=== PATIENT | female | born 1990 | race Two or more races ===

== ENCOUNTER 2019-10-27 17:01 | Emergency (ER) | payer SELFPAY ==
--- NOTE | 2019-10-27 17:30 | ER Document Report ---
ED Medical Screen (RME) - General Chief Complaint: Abdominal Pain Stated Complaint: ABDOMINAL PAIN Time Seen by Provider: 10/27/19 17:21 Mode of Arrival: Ambulatory Information source: Patient Notes: 28-year-old female presents to ED for complaint of right pelvic pain x3 days. She states her last menstrual cycle was October 07. She states that for the last 2 weeks she has had vaginal spotting. She states 3 days ago she started with some mild pelvic pain which is gradually gotten much worse until today her pain is a 4 out of 5. She states that she constantly feels like she has to have a big bowel movement cramping. She is alert oriented respirations regular nonlabored speaking in full sentences. She states she had a stool yesterday. I have greeted and performed a rapid initial assessment of this patient. A comprehensive ED assessment and evaluation of the patient, analysis of test results and completion of medical decision making process will be conducted by an additional ED providers. Physical Exam - Vital signs Vitals: Temp Pulse Resp BP Pulse Ox 98.3 F 76 16 118/78 100 10/27/19 17:07 10/27/19 17:07 10/27/19 17:07 10/27/19 17:07 10/27/19 17:07 Course - Vital Signs Vital signs: Temp Pulse Resp BP Pulse Ox 98.3 F 76 16 118/78 100 10/27/19 17:07 10/27/19 17:07 10/27/19 17:07 10/27/19 17:07 10/27/19 17:07
[2019-10-27 17:54] LABS: ABSOLUTE EOSINOPHILS # (AUTO) 0.1 10^3/uL (0.0-0.6); ABSOLUTE LYMPHOCYTES (AUTO) 2.1 10^3/uL (0.5-4.7); ABSOLUTE MONOCYTES (AUTO) 0.6 10^3/uL (0.1-1.4); ABSOLUTE NEUT (AUTO) 6.9 10^3/uL (1.7-8.2); BASOPHILS % (AUTO) 0.5 % (0-2); EOSINOPHILS % (AUTO) 0.8 % (0-6); HEMATOCRIT 37.7 % (36.0-47.0); HEMOGLOBIN 13.1 g/dL (12.0-15.5); MEAN CORPUSCULAR HEMOGLOBIN 29.5 pg (27.0-33.4); MEAN CORPUSCULAR HGB CONC 34.7 g/dL (32.0-36.0); MEAN CORPUSCULAR VOLUME 85 fl (80-97); MONOCYTES % (AUTO) 5.7 % (3-13); PLATELET COUNT 314 10^3/uL (150-450); RED BLOOD COUNT 4.42 10^6/uL (3.72-5.28); RED CELL DISTRIBUTION WIDTH 14.6 % (11.5-14.0); TOTAL CELLS COUNTED % (AUTO) 100 %; WHITE BLOOD COUNT 9.8 10^3/uL (4.0-10.5)
[2019-10-27 17:59] LABS: APPEARANCE,URINE CLEAR; BILIRUBIN,URINE NEGATIVE (NEGATIVE); COLOR,URINE YELLOW; GLUCOSE, URINE NEGATIVE (NEGATIVE); KETONES,URINE NEGATIVE (NEGATIVE); PROTEIN,URINE NEGATIVE (NEGATIVE); URINE SPECIFIC GRAVITY 1.012; UROBILINOGEN,URINE NEGATIVE mg/dL (<2.0)
[2019-10-27 18:09] LABS: ALBUMIN 4.7 g/dL (3.5-5.0); ALKALINE PHOSPHATASE 49 U/L (38-126); ANION GAP 9 (5-19); ASPARTATE AMINO TRANSFERASE 25 U/L (14-36); BILIRUBIN,TOTAL 0.2 mg/dL (0.2-1.3); BLOOD UREA NITROGEN 10 mg/dL (7-20); CALCIUM 9.9 mg/dL (8.4-10.2); CARBON DIOXIDE 25 mmol/L (22-30); CHLORIDE 103 mmol/L (98-107); GLUCOSE 85 mg/dL (75-110); POTASSIUM 4.5 mmol/L (3.6-5.0); TOTAL PROTEIN 7.9 g/dL (6.3-8.2)
[2019-10-27] MEDS ORDERED: ACETAMINOPHEN 325 MG TABLET PO ONE (19:20)
--- NOTE | 2019-10-27 19:21 | ER Document Report ---
ED GI/ - General Chief Complaint: Abdominal Pain Stated Complaint: ABDOMINAL PAIN Time Seen by Provider: 10/27/19 17:21 Mode of Arrival: Ambulatory Information source: Patient Notes: Patient is a 28-year-old female G4, P3 who comes in today complaining of right pelvic pain. Patient did not know that she is . Last period was October 07. Has had some spotting. Last child was born a year ago. Has had some pain with urination. Denies urgency or frequency. No fever. No back pain. No nausea. Nothing for pain prior to arrival. - Related Data Allergies/Adverse Reactions: No Known Allergies Allergy (Verified 10/27/19 17:32) Past Medical History - General Information source: Patient - Social History Smoking Status: Never Smoker Frequency of alcohol use: None Drug Abuse: None Family History: Reviewed & Not Pertinent Patient has suicidal ideation: No Patient has homicidal ideation: No Review of Systems - Review of Systems Constitutional: No symptoms reported EENT: No symptoms reported Cardiovascular: No symptoms reported Respiratory: No symptoms reported Gastrointestinal: See HPI Genitourinary: No symptoms reported, See HPI Female Genitourinary: See HPI Musculoskeletal: No symptoms reported Skin: No symptoms reported Hematologic/Lymphatic: No symptoms reported Neurological/Psychological: No symptoms reported Physical Exam - Vital signs Vitals: Temp Pulse Resp BP Pulse Ox 98.3 F 76 16 118/78 100 10/27/19 17:07 10/27/19 17:07 10/27/19 17:07 10/27/19 17:07 10/27/19 17:07 Interpretation: Normal - General General appearance: Appears well, Alert - HEENT Head: Normocephalic, Atraumatic Eyes: Normal Pupils: PERRL - Respiratory Respiratory status: No respiratory distress Chest status: Nontender Breath sounds: Normal Chest palpation: Normal - Cardiovascular Rhythm: Regular Heart sounds: Normal auscultation Murmur: No - Abdominal Inspection: Normal Distension: No distension Bowel sounds: Normal Tenderness: Tender - R pelvic Organomegaly: No organomegaly - Back Back: Normal, Nontender - Extremities General upper extremity: Normal inspection, Nontender, Normal color, Normal ROM, Normal temperature General lower extremity: Normal inspection, Nontender, Normal color, Normal ROM, Normal temperature, Normal weight bearing. No: Becky's sign - Neurological Neuro grossly intact: Yes Cognition: Normal Orientation: AAOx4 Frank Coma Scale Eye Opening: Spontaneous [place] Coma Scale Verbal: Oriented Frank Coma Scale Motor: Obeys Commands Frank Coma Scale Total: 15 Speech: Normal Motor strength normal: LUE, RUE, LLE, RLE Sensory: Normal - Psychological Associated symptoms: Normal affect, Normal mood - Skin Skin Temperature: Warm Skin Moisture: Dry Skin Color: Normal Course - Re-evaluation Re-evalutation: 10/27/19 19:20 Patient informed that she is in fact based on serum hCG. She is surprised. Ultrasound performed and results are pending at this time. Patient would like Tylenol for pain. 10/27/19 19:32 Received call from radiologist that patient has an area and ultrasound that is suspicious for ectopic . Correlates with clinical presentation. 10/27/19 19:[address] Rodgers from [facility]. She will come evaluate the patient and look at the images. 10/27/19 20:[address] Rodgers and images reviewed. Patient is more comfortable since Tylenol. Vitals are stable. Hemoglobin stable. Early versus ectopic versus miscarriage. Had lengthy discussion with patient using tube bender phone. Patient will have blood work redrawn on Sunday morning and follow-up in the [facility] office Sunday afternoon. She is agreeable to this plan. This is also been explained to her by telephone. Patient is not sure that she wants to proceed with regardless, but this will be discussed once it is determined if she is progressing in where the is. She is instructed to return to the emergency department if she has any worsening pain, bleeding, or further concerns. Understands and agrees with plan. Stable for discharge. Discussed with nursing present in room. 10/27/19 2100 RhoGam not indicated. Patient is feeling well. Vitals stable. Return if any worsening or concerning symptoms. Prescription given for hCG to be drawn. Follow-up in office on Sunday. Patient understands and agrees with this plan. Stable for discharge. - Vital Signs Vital signs: Temp Pulse Resp BP Pulse Ox 97.9 F 74 18 126/78 H 98 10/27/19 22:20 10/27/19 22:20 10/27/19 22:20 10/27/19 22:20 10/27/19 22:20 - Laboratory Result Diagrams: 10/27/19 17:30 10/27/19 17:30 Laboratory results interpreted by me: 10/27/19 10/27/19 10/27/19 17:30 17:30 17:30 RDW 14.6 H Beta HCG, Quant 1389.50 H Urine Blood LARGE H - Diagnostic Test Radiology reviewed: Image reviewed, Reports reviewed Discharge - Discharge Clinical Impression: Vaginal bleeding Qualifiers: Weeks of gestation: less than 8 weeks Qualified Code(s): Z3A.01 - Less than 8 weeks gestation of Pelvic pain complicating Qualifiers: Trimester: first trimester Qualified Code(s): O26.891 - Other specified related conditions, first trimester; R10.2 - Pelvic and perineal pain Condition: Stable Disposition: HOME, SELF-CARE Instructions: Ectopic Precaution ([facility]) Additional Instructions: Please have blood work done on Sunday. Please call Dr. Rodgers's office tomorrow morning for an appointment on Sunday afternoon. Forms: Follow-Up Laboratory Testing Print Language: English
--- NOTE | 2019-10-27 19:39 | RADIOLOGY REPORT (SQ) ---
EXAM DESCRIPTION: U/S OB TRANSVAGINAL W/O DOP IMAGES COMPLETED DATE/TIME: 10/27/2019 7:12 pm REASON FOR STUDY: Right pelvic pain with vaginal bleeding COMPARISON: None. TECHNIQUE: Transvaginal static and realtime grayscale images acquired of the pelvis. Additional brooke cted spectral and color Doppler images recorded. All images stored on PACs. CLINICAL AGE: 2 week 5 day [facility].5 LIMITATIONS: None. FINDINGS: UTERUS: No visualized intrauterine . RIGHT ADNEXA: Ovary itself looks normal. Immediately adjacent is not an ovoid hypoechoic fairly nonv ascular appearing region which measures up to 5 cm maximal dimension. Ovary otherwise measures 2.9 x 2.0 x 1.9 cm. LEFT ADNEXA: Normal ovary with normal vascular flow. No adnexal free fluid. No adnexal masses. FREE FLUID: There is complex appearing free fluid in the cul-de-sac. This is relatively mild. OTHER: No other significant finding. IMPRESSION: 1. Complex appearing free fluid could represent pelvic hemorrhage. There is also a heterogeneous are a immediately adjacent to the right ovary. This is concerning for right tubal ectopic. Pertinent findings on the imaging study reported as a CRITICAL RESULT to Angelita Starr at19:32 on 10/27/2019. Category of Critical Result: Possible right ectopic . TECHNICAL DOCUMENTATION: JOB ID: [id number] 2010 [employer]- All Rights Reserved Reading location - IP/workstation name: [email or web address]
[2019-10-27 22:38] VITALS: BP 126/78
== END 2019-10-27 22:20 | disposition home or self-care (01) ==
LOC: ER 17:01
DX: O26.891 Other specified pregnancy related conditions, first trimester (principal); R10.2 Pelvic and perineal pain; R30.9 Painful micturition, unspecified; O20.9 Hemorrhage in early pregnancy, unspecified; Z3A.01 Less than 8 weeks gestation of pregnancy
CPT/HCPCS: 36415; 76817; 80053; 81001; 84702; 85025; 86900; 86901; 99284

== ENCOUNTER → 2019-10-30 | Outpatient (CLI) | payer SELFPAY | LOC: OD 10:24 | PROVIDERS: ATTEND Obstetrics & Gynecology | DX: R10.2 Pelvic and perineal pain (principal); O20.0 Threatened abortion; Z3A.00 Weeks of gestation of pregnancy not specified | CPT/HCPCS: 36415; 84702 ==

== ENCOUNTER 2019-11-04 15:17 | Emergency (ER) | payer SELFPAY ==
--- NOTE | 2019-11-04 15:30 | ER Document Report ---
ED Medical Screen (RME) - General Chief Complaint: Abdominal Pain Stated Complaint: ABDOMINAL PAIN Time Seen by Provider: 11/04/19 15:24 Primary Care Provider: BRAD LLAMAS MD [Primary Care Provider] - Follow up as needed Mode of Arrival: Wheelchair Information source: Patient Notes: 28-year-old female G4, P3 presents to the emergency department with complaints of right lower pelvic pain. Last menstrual period October 07. Patient was evaluated last week for same symptoms. Observation for ectopic noted. hCG decreasing. [facility] contacted [facility] and was told to come here today. I have greeted and performed a rapid initial assessment of this patient. A comprehensive ED assessment and evaluation of the patient, analysis of test results and completion of the medical decision making process will be conducted by additional ED providers. - Related Data Allergies/Adverse Reactions: No Known Allergies Allergy (Verified 10/27/19 17:32) Doctor's Discharge - Discharge Referrals: BRAD LLAMAS MD [Primary Care Provider] - Follow up as needed
[2019-11-04 16:03] LABS: ABSOLUTE LYMPHOCYTES (AUTO) 1.3 10^3/uL (0.5-4.7); ABSOLUTE MONOCYTES (AUTO) 0.1 10^3/uL (0.1-1.4); ABSOLUTE NEUT (AUTO) 8.9 10^3/uL (1.7-8.2); BASOPHILS % (AUTO) 0.4 % (0-2); EOSINOPHILS % (AUTO) 0.2 % (0-6); HEMATOCRIT 37.1 % (36.0-47.0); HEMOGLOBIN 12.9 g/dL (12.0-15.5); LYMPHOCYTES % (AUTO) 12.8 % (13-45); MEAN CORPUSCULAR HEMOGLOBIN 29.6 pg (27.0-33.4); MEAN CORPUSCULAR HGB CONC 34.6 g/dL (32.0-36.0); MEAN CORPUSCULAR VOLUME 85 fl (80-97); MONOCYTES % (AUTO) 1.2 % (3-13); PLATELET COUNT 317 10^3/uL (150-450); RED BLOOD COUNT 4.35 10^6/uL (3.72-5.28); RED CELL DISTRIBUTION WIDTH 14.4 % (11.5-14.0); SEGMENTED NEUTROPHILS % (AUTO) 85.4 % (42-78); TOTAL CELLS COUNTED % (AUTO) 100 %; WHITE BLOOD COUNT 10.4 10^3/uL (4.0-10.5)
--- NOTE | 2019-11-04 16:13 | ER Document Report ---
ED GI/ - General Chief Complaint: Pelvic Pain Stated Complaint: ABDOMINAL PAIN Time Seen by Provider: 11/04/19 15:24 Primary Care Provider: [facility] [Provider Group] - Follow up tomorrow Mode of Arrival: Wheelchair Information source: Patient Notes: 28-year-old female presented to ED for complaint of right pelvic pain. She was seen a week ago and diagnosed with an ectopic . She did see Dr. Rodgers who gave her methotrexate to resolve the ectopic . She came in today for increased pain. She was seen in triage by Mariama Guzman and blood and ultrasound had been ordered. I examined the patient she had right lower quadrant/pelvic tenderness. She states she had not had more than a few spots of vaginal bleeding. She is alert oriented respirations regular nonlabored speaking in full sentences. Her blood was completed with not a lot of change in the levels. Her ultrasound was completed which showed blood in the right pelvic area. Dr. Rodgers was notified. She did come down look at the lab changes as well as the ultrasound and then examined the patient. She stated the patient would need to have a hCG quant done tomorrow morning at the hospital and then see the [employer] [employer] TECHNIC[facility]'s at the office tomorrow afternoon. While we were examining the patient she then stated that she had not had a bowel movement for 6 days. Patient will be treated with a minimal and soapsuds enema while in the emergency room and then she will get her labs done tomorrow and see the [employer]ICE TECHNICIAN in the afternoon. - HPI Patient complains to provider of: Pelvic pain, Other Onset: Last week - Week ago worse this morning Timing/Duration: Worse Quality of pain: Sharp Severity at maximum: Severe Severity in ED: Moderate Pain Level: 3 Location: Pelvis - Right Vaginal bleeding (Compared to normal period): Spotting Menstrual period history: - Ectopic using methotrexate this treatment Associated symptoms: Other - Right pelvic pain with mild vaginal bleeding Exacerbated by: Movement Relieved by: Denies Similar symptoms previously: Yes Recently seen / treated by doctor: Yes - Related Data Allergies/Adverse Reactions: No Known Allergies Allergy (Verified 10/27/19 17:32) Past Medical History - General Information source: Patient - Social History Smoking Status: Never Smoker Frequency of alcohol use: None Drug Abuse: None Family History: Reviewed & Not Pertinent Patient has suicidal ideation: No Patient has homicidal ideation: No - Past Medical History Cardiac Medical History: Reports: None Pulmonary Medical History: Reports: None EENT Medical History: Reports: None Neurological Medical History: Reports: None Endocrine Medical History: Reports: None Renal/ Medical History: Reports: Hx Ectopic Malignancy Medical History: Reports: None GI Medical History: Reports: None Musculoskeletal Medical History: Reports None Skin Medical History: Reports None Psychiatric Medical History: Reports: None Traumatic Medical History: Reports: None Infectious Medical History: Reports: None Surgical Hx: Negative Past Surgical History: Reports: None Review of Systems - Review of Systems Constitutional: No symptoms reported EENT: No symptoms reported Cardiovascular: No symptoms reported Respiratory: No symptoms reported Gastrointestinal: No symptoms reported Genitourinary: No symptoms reported Female Genitourinary: - Ectopic being treated with methotrexate, Other - Pelvic pain vaginal bleeding Musculoskeletal: No symptoms reported Skin: No symptoms reported Hematologic/Lymphatic: No symptoms reported Neurological/Psychological: No symptoms reported -: Yes All other systems reviewed and negative Physical Exam - Vital signs Vitals: Temp Pulse Resp BP Pulse Ox 97.9 F 81 18 115/62 98 11/04/19 15:23 11/04/19 15:23 11/04/19 15:23 11/04/19 15:23 11/04/19 15:23 Interpretation: Normal - General General appearance: Appears well, Alert - HEENT Head: Normocephalic, Atraumatic Eyes: Normal Pupils: PERRL - Respiratory Respiratory status: No respiratory distress Chest status: Nontender Breath sounds: Normal Chest palpation: Normal - Cardiovascular Rhythm: Regular Heart sounds: Normal auscultation Murmur: No - Abdominal Inspection: Normal Distension: No distension Bowel sounds: Normal Tenderness: Tender - Pelvic/lower abdominal pain Organomegaly: No organomegaly - Back Back: Normal, Nontender - Extremities General upper extremity: Normal inspection, Nontender, Normal color, Normal ROM, Normal temperature General lower extremity: Normal inspection, Nontender, Normal color, Normal ROM, Normal temperature, Normal weight bearing. No: Becky's sign - Neurological Neuro grossly intact: Yes Cognition: Normal Orientation: AAOx4 Frank Coma Scale Eye Opening: Spontaneous Frank Coma Scale Verbal: Oriented [place] Coma Scale Motor: Obeys Commands Frank Coma Scale Total: 15 Speech: Normal Motor strength normal: LUE, RUE, LLE, RLE Sensory: Normal - Psychological Associated symptoms: Normal affect, Normal mood - Skin Skin Temperature: Warm Skin Moisture: Dry Skin Color: Normal Course - Vital Signs Vital signs: Temp Pulse Resp BP Pulse Ox 98.5 F 70 16 111/79 100 11/04/19 19:20 11/04/19 19:20 11/04/19 19:20 11/04/19 19:20 11/04/19 19:20 - Laboratory Result Diagrams: 11/04/19 15:44 11/04/19 15:44 Laboratory results interpreted by me: 11/04/19 11/04/19 11/04/19 15:44 15:44 18:35 RDW 14.4 H Lymph % (Auto) 12.8 L [place] % (Auto) 1.2 L Absolute Neuts (auto) 8.9 H Seg Neutrophils % 85.4 H Sodium 135.6 L Glucose 122 H Beta HCG, Quant 887.55 H Urine Blood LARGE H Leukocyte Esterase Rfl TRACE H - Diagnostic Test Radiology reviewed: Image reviewed, Reports reviewed Discharge - Discharge Clinical Impression: Pelvic pain with ectopic Constipation Qualifiers: Constipation type: unspecified constipation type Qualified Code(s): K59.00 - Constipation, unspecified Condition: Stable Disposition: HOME, SELF-CARE Additional Instructions: Ectopic , Non-Surgical You have an ectopic (tubal) . The fetus has implanted outside the uterus. A tubal cannot result in a live baby. To allow a tubal pr egnancy to continue can be fatal for the mother. If an ectopic is identified early, it can be treated without surgery. Your ectopic has not ruptured. A anger control counselor has determined that we'll try to eliminate the tubal with medication. Follow up with the anger control counselor as instructed. Return at once if you develop severe, sharp, and sudden pain in the lower abdomen, pain in the shoulder area, severe lightheadedness or fainting, or heavy bleeding (more than menstrual bleeding). ABDOMINAL PAIN: There are many causes of abdominal pain. Pain can mean a serious problem requiring surgery (such as appendicitis). It can also be an innocent problem that goes away on its own (such as a viral infection). Often, time must pass to determine the cause of pain. The physician does not feel that hospitalization is necessary, at present. Things may change within the next 24 hours. Call the doctor or come back for re- examination if any problems occur, such as: (1) Pain that becomes more severe, steady, or becomes concentrated in one specific area. Also, pain that is more severe with movement or coughing. (2) Vomiting that persists or becomes more frequent. (3) Blood in the vomitus, urine, or bowel movements. Blood in the stool may have a tarry or black appearance. (4) Shaking chills or fever greater than 100 degrees F. (5) The abdomen becomes more distended or swollen. (6) Bowel movements cease. (7) Failure to improve as expected. CONSTIPATION: Constipation is a common problem. It is especially likely as you get older. Constipation is a common cause of abdominal pain, but sometimes causes no symptoms at all. Causes of constipation include certain medications, dehydration, diets, inactivity, and low-fiber intake. Rarely, it can be a symptom of underlying disease. The physician has evaluated you for this. Avoid constipation by eating a diet high in fiber, fruits, and vegetables. Drink plenty of liquids. Get regular exercise. If possible, avoid constipating medicines like narcotic pain medication. Some vitamin tablets can cause constipation. Stool softeners may be needed for difficult cases. An excellent stool softener is Konsyl which is available at [employer], and [facility] [employer] drug [employer]. Just add a teaspoon to a glass of pineapple or orange juice daily or twice a day if needed. Laxatives are useful for occasional constipation. You should use them only when necessary. Too-frequent use can make your bowels dependent on them. Some over the counter laxatives available without prescription are: Recommended a soapsuds and mineral oil enema but you have refused that at this time. You stated you wanted to use laxatives at home.. You still need to do the follow-up labs in tomorrow morning and follow-up with your [employer] SERVICE TECHNICIAN tomorrow afternoon as recommended by the [employer] SERVICE TECHNICIAN in the emergency room. You can use MiraLAX to help you with your constipation. It is an appropriate white bottle. Put 1 capful in a glass of water juice what ever you want to drink start GERD and use this twice a day. According to the [employer] SPRINK[employer]ER SERVICE TECHNICIAN raisin bran or beer might help you have the better bowel movement also activity and increase fluids. FOLLOW-UP CARE: If you have been referred to a physician for follow-up care, call the physicia office for an appointment as you were instructed or within the next two days. If you experience worsening or a significant change in your symptoms, notify the physician immediately or return to the Emergency Department at any time for re-evaluation. Forms: Follow-Up Laboratory Testing Referrals: [facility] [Provider Group] - Follow up tomorrow
[2019-11-04 16:20] LABS: ALBUMIN 4.5 g/dL (3.5-5.0); ALKALINE PHOSPHATASE 53 U/L (38-126); ANION GAP 9 (5-19); ASPARTATE AMINO TRANSFERASE 34 U/L (14-36); BILIRUBIN,TOTAL 0.5 mg/dL (0.2-1.3); BLOOD UREA NITROGEN 8 mg/dL (7-20); CALCIUM 9.5 mg/dL (8.4-10.2); CARBON DIOXIDE 26 mmol/L (22-30); CHLORIDE 101 mmol/L (98-107); GLUCOSE 122 mg/dL (75-110); POTASSIUM 3.9 mmol/L (3.6-5.0); TOTAL PROTEIN 7.8 g/dL (6.3-8.2)
--- NOTE | 2019-11-04 18:43 | RADIOLOGY REPORT (SQ) ---
EXAM DESCRIPTION: U/S OB TRANSVAGINAL W/O DOP IMAGES COMPLETED DATE/TIME: 11/04/2019 6:06 pm REASON FOR STUDY: , ectopic treated with methotrexate COMPARISON: 10/27/2019 pelvic ultrasound TECHNIQUE: Endovaginal static and realtime grayscale images acquired of the pelvis. Additional selec carissa spectral and color Doppler images recorded. All images stored on PACs. C,[id number] 10/27/2019 887 today 11/04/2019 CLINICAL DATES: Last menses uncertain LIMITATIONS: None. FINDINGS: UTERUS: Uterus is 9.5 x 4.9 x 7.4 cm size. No intrauterine gestational . Endome trial stripe about 6 mm thickness. Cervix closed. RIGHT ADNEXA: Normal ovary with normal vascular flow. Right ovary 3.3 x 2.6 x 2.2 cm size. No adnex al free fluid.No adnexal masses. LEFT ADNEXA: Left ovary 3.9 x 3.1 x 1.6 cm. Heterogeneous mixed echogenicity blood clot is present t hroughout the cul-de-sac and left adnexa region measuring about 8 x 3 cm in size, slightly more promi nent than on previous study. FREE FLUID: Moderate amount of blood clot in the pelvic cul de sac OTHER: No other significant finding. IMPRESSION: Moderate-sized left adnexal blood clot about 8 x 3 cm in size. Patient currently being treated for ectopic with methotrexate. No intrauterine is identified. Findings discussed with Risa Ruth as a critical finding in the emergency room 1830 hours 11/03. Trimester of : First trimester - 0 to 13 weeks. TECHNICAL DOCUMENTATION: JOB ID: [id number] [employer]- All Rights Reserved rev-11/23 Reading location - IP/workstation name: [id number]
[2019-11-04] MEDS: MINERAL OIL 30 ML UDCUP PR ONE ×2 (18:57→19:21)
[2019-11-04 19:25] VITALS: BP 111/79
[2019-11-04 19:32] LABS: AMORPHOUS SEDIMENT,URINE TRACE /HPF; APPEARANCE,URINE CLOUDY; BILIRUBIN,URINE NEGATIVE (NEGATIVE); COLOR,URINE YELLOW; GLUCOSE, URINE NEGATIVE (NEGATIVE); KETONES,URINE NEGATIVE (NEGATIVE); PROTEIN,URINE NEGATIVE (NEGATIVE); URINE SPECIFIC GRAVITY 1.015; UROBILINOGEN,URINE NEGATIVE mg/dL (<2.0)
== END 2019-11-04 19:30 | disposition home or self-care (01) ==
LOC: ER 15:17
DX: O00.90 Unspecified ectopic pregnancy without intrauterine pregnancy (principal); R10.2 Pelvic and perineal pain; R10.31 Right lower quadrant pain; K59.00 Constipation, unspecified; Z3A.01 Less than 8 weeks gestation of pregnancy
CPT/HCPCS: 36415; 76817; 80053; 81001; 84702; 85025; 99284; J3490

== ENCOUNTER → 2019-11-05 | Outpatient (CLI) | payer SELFPAY | LOC: OD 09:15 | PROVIDERS: ATTEND Nurse Practitioner | DX: O00.90 Unspecified ectopic pregnancy without intrauterine pregnancy (principal) | CPT/HCPCS: 36415; 84702 ==

== ENCOUNTER 2020-05-12 08:00 | Day surgery (SDC) | payer MEDICAID ==
[~2020-05-12 08:00] MED LIST: PROPOFOL INJ 200 MG/20 ML VIAL IV ONE
[2020-05-12 10:42] VITALS: BP 105/83
--- NOTE | 2020-05-12 10:44 | Operative Report ---
Operative Report DATE OF SURGERY: 05/12/20 Operative Report: The risks benefits and alternatives of the procedure explained to the patient in detail and informed consent is obtained.A GIF Olympus video scope was inserted into the patient's mouth and hypopharynx, the esophagus is identified intubated and insufflated ,the scope was then advanced through the esophagus stomach and duodenum, retroflexion maneuver is done ,the esophagus stomach and first and second portions of the duodenum examined PREOPERATIVE DIAGNOSIS: Epigastric pain rule out peptic ulcer disease POSTOPERATIVE DIAGNOSIS: Gastritis status post biopsy. Hiatal hernia OPERATION: EGD with biopsy SURGEON: YULIANA PLEITEZ ANESTHESIA: LMAC TISSUE REMOVED OR ALTERED: As noted above. COMPLICATIONS: None. ESTIMATED BLOOD LOSS: None. INTRAOPERATIVE FINDINGS: As noted above. PROCEDURE: Patient tolerated the procedure well. No immediate postprocedure complications are noted. Patient is discharged in good condition. Discharge date 05/12/2020. Discharge diet: Regular. Discharge activity: Regular. 2 to 3-week follow-up to discuss findings. Patient is instructed to call the office or proceed to the emergency room should there be any further problems or questions. Wait on the pathology.
== END 2020-05-12 11:09 | disposition home or self-care (01) ==
LOC: END 08:00
PROVIDERS: ATTEND Internal Medicine Gastroenterology
DX: K29.70 Gastritis, unspecified, without bleeding (principal); B96.81 Helicobacter pylori [H. pylori] as the cause of diseases classified elsewhere; K44.9 Diaphragmatic hernia without obstruction or gangrene; K21.9 Gastro-esophageal reflux disease without esophagitis; Z79.899 Other long term (current) drug therapy
CPT/HCPCS: 43239; 88342 ×2; 88305 ×2; J2704